=== PATIENT | female | born 1945 | race Caucasian/White ===

== ENCOUNTER 2018-10-03 16:38 | Inpatient (IN) | payer MEDICARE, OTHER ==
[~2018-10-03] VITALS: Ht 157.5 cm; Wt 58.5 kg
[2018-10-03 16:48] VITALS: Ht 157.5 cm; Wt 58.5 kg
[2018-10-03 17:51] LABS: microscopic required? NO
[2018-10-03 18:05] LABS: CALCIUM 8.6 mg/dL (8.5-10.1); CARBON DIOXIDE 27.1 mmol/L (21-32); CHLORIDE SERUM 104 mmol/L (98-107); CREATININE SERUM 0.8 mg/dL (0.6-1.0); GLUCOSE SERUM 118 mg/dL (74-106); POTASSIUM SERUM 4.1 mmol/L (3.5-5.1); SODIUM SERUM 140 mmol/L (136-145)
[2018-10-03 18:05] LABS: UA SPECIFIC GRAVITY <=1.005 (1.005-1.035); urine erythrocyte NEGATIVE (NEGATIVE)
[2018-10-03 18:09] LABS: BASOPHIL % 0.9 % (0-2); PLATELET COUNT 345 x10^3mcL (130-400)
[2018-10-03 18:14] LABS: RED CELL DISTRIBUTION WIDTH 16.5 % (11.5-14.5)
[2018-10-03 18:17] LABS: ALKALINE PHOSPHATASE 51 U/L (46-116); ALT/SGPT 16 U/L (14-59); AST/SGOT 24 U/L (15-37); BILIRUBIN TOTAL 0.1 mg/dL (0.20-1.00); HDL CHOLESTEROL 41 mg/dL (40-60); LIPASE 138 IU/L (73-393); T4(THYROXINE) 6.6 ug/dL (4.7-13.3); TOTAL PROTEIN, SERUM 7.7 g/dL (6.4-8.2)
[2018-10-03 18:33] LABS: ALBUMIN 3.3 g/dL (3.4-5.0); AMYLASE 118 U/L (25-115); CHOLESTEROL 212 mg/dL (<200)
[2018-10-04] VITALS (7 sets, daily range): BP systolic 108–149; BP diastolic 50–59
[2018-10-04 00:09] LABS: MAGNESIUM 2.2 mg/dL (1.8-2.4); PHOSPHOROUS 2.9 mg/dL (2.5-4.9)
== END 2018-10-05 | disposition left against medical advice (07) | DRG 196 ==
LOC: ED 16:38 → DU 23:34
PROVIDERS: Emergency Medicine; ADMIT Internal Medicine
DX: J84.10 Pulmonary fibrosis, unspecified (principal); J96.00 Acute respiratory failure, unspecified whether with hypoxia or hypercapnia; J44.1 Chronic obstructive pulmonary disease with (acute) exacerbation; M94.0 Chondrocostal junction syndrome [Tietze]; K21.9 Gastro-esophageal reflux disease without esophagitis; E11.65 Type 2 diabetes mellitus with hyperglycemia; M19.90 Unspecified osteoarthritis, unspecified site; E78.5 Hyperlipidemia, unspecified; K64.9 Unspecified hemorrhoids; Z68.26 Body mass index [BMI] 26.0-26.9, adult
CPT/HCPCS: 82962; 83880; J1956; J2920; J7030; J7620; Q0092; Q9967